=== PATIENT | male | born 1970 | race Two or more races ===

== ENCOUNTER 2017-01-25 12:35 | Emergency (ER) | payer BC, OTHER ==
[~2017-01-25] VITALS: Ht 177.8 cm; Wt 113.4 kg
[2017-01-25 12:48] VITALS: BP 145/84
[2017-01-25 13:24] LABS: Basophils # (auto) 0 uL; Basophils % (auto) 0.4 % (0.0-2.0); CONDITION Y; Eosinophils # (auto) 0 uL; Hematocrit 50.6 % (41.0-53.0); Hemoglobin 17.9 g/dL (13.5-17.5); Lymphocytes # (auto) 0.6 uL; Lymphocytes % (auto) 6.6 % (10.0-50.0); Mean Corpuscular Hemoglobin 31.7 pg (28.0-32.0); Mean Corpuscular Hgb Conc. 35.3 g/dL (32.0-36.0); Mean Corpuscular Volume 89.8 fL (80.0-100.0); Mean Platelet Volume 9.4 fL (7.4-10.4); Monocytes # (auto) 0.4 uL; Neutrophils # (auto) 7.7 uL; Platelet Count (auto) 180 10^3/uL (140-450); Red Cell Distribution Width 13.5 % (11.6-16.0); White Blood Cell 8.8 10^3/uL (4.4-10.8)
[2017-01-25 13:38] LABS: BUN/Creatinine Ratio 10.9; Potassium 3.3 mmol/L (3.5-5.1)
[2017-01-25 13:41] LABS: Total Protein 7.8 g/dL (6.4-8.2)
== END 2017-01-25 22:08 | disposition left against medical advice (07) ==
LOC: EDBD 12:35 → ER 12:40
DX: R53.1 Weakness (principal)
CPT/HCPCS: 36415; 71020; 80053; 83735; 85025; 93005